=== PATIENT | male | born 1970 | race Two or more races ===

== ENCOUNTER 2019-04-15 12:00 | Emergency (ER) | payer OTHER ==
[~2019-04-15] VITALS: Ht 190.5 cm; Wt 129.7 kg
[2019-04-15] MEDS ORDERED: METFORMIN HCL500 M3 (12:21)
== END 2019-04-15 16:11 | disposition home or self-care (01) ==
LOC: ER 12:00
DX: A08.4 Viral intestinal infection, unspecified (principal)

== ENCOUNTER 2020-04-05 22:32 | Emergency (ER) | payer OTHER ==
[~2020-04-05] VITALS: Ht 190.5 cm; Wt 119.7 kg
[~2020-04-05 22:32] MED LIST: METFORMIN HCL500 M3
[2020-04-06] MEDS ORDERED: ORPHENADRINE C100 MG PO (01:27)
[2020-04-06] MEDS ORDERED: KETO10TA2 PO (01:27)
== END 2020-04-06 04:32 | disposition home or self-care (01) ==
LOC: ER 22:32
DX: M62.830 Muscle spasm of back (principal); M54.5 Low back pain

== ENCOUNTER 2020-04-13 17:08 | Emergency (ER) | payer OTHER ==
[~2020-04-13] VITALS: Ht 190.5 cm; Wt 119.7 kg
[~2020-04-13 17:08] MED LIST changes: +KETO10TA2 PO; +ORPHENADRINE C100 MG PO
[2020-04-13] MEDS ORDERED: FORTAMET500 MG PO (17:21)
[2020-04-13] MEDS ORDERED: VITAMIN C WIT1000 MG PO (23:44)
[2020-04-13] MEDS ORDERED: ACETAMINOPHEN650 M2 PO (23:44)
[2020-04-13] MEDS ORDERED: VITAMIN D3-ALO1 EACH PO (23:44)
== END 2020-04-14 03:29 | disposition home or self-care (01) ==
LOC: ER 17:08
DX: B34.9 Viral infection, unspecified (principal); R07.89 Other chest pain; Z03.818 Encounter for observation for suspected exposure to other biological agents ruled out

== ENCOUNTER 2020-07-26 19:24 | Emergency (ER) | payer OTHER ==
[~2020-07-26] VITALS: Ht 190.5 cm; Wt 127.0 kg
[~2020-07-26 19:24] MED LIST changes: +ACETAMINOPHEN650 M2 PO; +FORTAMET500 MG PO; +VITAMIN C WIT1000 MG PO; +VITAMIN D3-ALO1 EACH PO
[2020-07-26] MEDS ORDERED: AMLODIPINE BESYL5 MG PO (19:36)
[2020-07-26] MEDS ORDERED: LISINOPRIL20 MG PO (19:36)
[2020-07-26] MEDS ORDERED: CHLORTHALIDONE25 MG PO (19:36)
[2020-07-26] MEDS ORDERED: GLIMEPIRIDE2 M1 PO (19:36)
== END 2020-07-26 21:42 | disposition home or self-care (01) ==
LOC: ER 19:24
DX: R10.84 Generalized abdominal pain (principal)

== ENCOUNTER 2021-05-13 19:19 | Emergency (ER) | payer OTHER ==
[~2021-05-13] VITALS: Ht 190.5 cm; Wt 127.5 kg
[~2021-05-13 19:19] MED LIST changes: +AMLODIPINE BESYL5 MG PO; +CHLORTHALIDONE25 MG PO; +GLIMEPIRIDE2 M1 PO; +LISINOPRIL20 MG PO
[2021-05-14] MEDS ORDERED: GLIMEPIRIDE4 MG PO (03:47)
== END 2021-05-14 03:40 | disposition home or self-care (01) ==
LOC: ER 19:19
DX: E11.65 Type 2 diabetes mellitus with hyperglycemia (principal); Z20.822 Contact with and (suspected) exposure to COVID-19

== ENCOUNTER 2024-05-19 17:16 | Emergency (ER) | payer OTHER ==
[~2024-05-19] VITALS: Ht 190.5 cm; Wt 131.1 kg
[~2024-05-19 17:16] MED LIST changes: +FLUCONAZOLE150 MG PO; +GLIMEPIRIDE4 MG PO
[2024-05-19] MEDS ORDERED: EZALLOR SPRINKLE5 MG PO (17:24)
[2024-05-19] MEDS ORDERED: JANUMET 50-1,01 EACH PO (17:24)
== END 2024-05-19 19:41 | disposition home or self-care (01) ==
LOC: ER 17:18
DX: R19.00 Intra-abdominal and pelvic swelling, mass and lump, unspecified site (principal); Z88.6 Allergy status to analgesic agent; E11.9 Type 2 diabetes mellitus without complications; Z79.84 Long term (current) use of oral hypoglycemic drugs